=== PATIENT | female | born 1970 ===

== ENCOUNTER 2017-11-24 14:15 | Outpatient (CLI) | payer BC ==
--- NOTE | 2017-11-24 14:54 | XRay Report ---
XRAY CHEST TWO VIEWS: 11/24/17 14:15:00 CLINICAL: Cough. COMPARISON: None FINDINGS: Normal heart and pulmonary vasculature. The lungs are normally expanded and clear.The bones and soft tissues are unremarkable. IMPRESSION: Normal chest.
== END 2017-11-24 14:16 | disposition home or self-care (01) ==
LOC: SPVIMAG 14:15
PROVIDERS: ATTEND Internal Medicine
DX: R05 Cough (principal)
CPT/HCPCS: 71046